=== PATIENT | female | born 1940 | race Caucasian/White ===

== ENCOUNTER 2023-09-20 17:50 | Emergency (ER) | payer BC, SELFPAY ==
[2023-09-20 18:52] VITALS: BP 164/79; PULSE 108; RESP 18; TEMP 36.8; O2SAT 97; BMI 26.9
[2023-09-20 19:54] LABS: PCR FLU A Negative PCR FLU A (Negative); PCR FLU B Negative PCR FLU B (Negative); PCR RSV Negative PCR RSV (Negative)
[2023-09-20 20:07] LABS: SARS PCR* Negative SARS-CoV-2 (Negative)
[2023-09-20 21:30] VITALS: BP 165/83; PULSE 89; RESP 18; O2SAT 96
--- NOTE | 2023-09-20 21:43 | ED_ITS ---
HPI - General Adult General Chief complaint: Hypertension Stated complaint: High BP, nausea Time Seen by Provider: 09/20/23 21:43 History of Present Illness HPI narrative: patient is feeling sick and started this am unable to eat or drink , feeling clammy, nausea, a little blood in stool that was red in stool today has had before but has been a while. running a little high BP, has tightness in the abdomen as if the pants are too tight. feeling weird' feels as if unable to talk, exhausted unable to sleep 83-year-old woman presenting to the emergency department feeling generally unwell. Feels like she is having trouble eating or drinking. Is nauseated. Not with abdominal pain but feels as if is full. Exhausted. Admittedly poor sleep. No fever. No particular exposures. Did note some small bright red blood in stool today. This is not new. Sounds to have been rectal passage. Has been having regular bowel movements. Just feels awful she does not think she will make it to her iron infusion tomorrow. Revealed later discussing along with that has been struggling with grief over the last week particularly due to the of a very close mend worker dog. It is been ?really rough? says. She is not describing suicidal ideation. Has been apparently coping over the last week by drinking eliazar but she endorses from last night as well. Related Data Home Medications Medication Instructions Recorded Confirmed alendronate 70 mg tablet 70 mg PO 09/20/23 amlodipine 10 mg tablet 10 mg PO DAILY 09/20/23 09/20/23 metoprolol succinate 25 mg 25 mg PO DAILY 09/20/23 09/20/23 tablet,extended release 24 hr omeprazole 20 mg capsule,delayed 20 mg PO DAILY 09/20/23 09/20/23 release rosuvastatin 20 mg tablet 20 mg PO QPM 09/20/23 09/20/23 trazodone 100 mg tablet 100 mg PO QPM 09/20/23 09/20/23 Allergies Allergy/AdvReac Type Severity Reaction Status Date / Time No Known Drug Allergies Allergy Verified 09/20/23 19:03 Review of Systems Status of ROS: Reports: 6 or more systems reviewed and unremarkable except as noted in History and below PFSH PFS Social History Smoking Status: Unknown if ever smoked Exam Narrative: Exam Narrative: Very pleasant. Calm. Looks quite fatigued and if she just does not feel very good. Easily responsive in conversation. Occasional belching. Skin is warm and dry without evidence of trauma. Minimal for lower extremity edema. Nonpitting. Well-perfused peripherally. Moving all extremities without difficulty. Oropharynx is sticky without erythema. Neck is supple without lymphadenopathy. Lungs are clear. Heart is in elevated to tachycardic rate in a regular rhythm. Abdomen is full soft and nontender. Normal bowel sounds. Cranial nerves 2-12 are intact with pupils 3 mm and equal and accommodating. Const: Vital Signs, click to edit/add: Vital Signs - 24 hr 09/20/23 18:52 Temperature 98.3 F Pulse Rate [Right Pulse Oximeter] 108 H Respiratory Rate 18 Blood Pressure [Ri ght Upper Arm] 164/79 H Pulse Oximetry 97 Oxygen Delivery Me thod Room Air Documenting provider has reviewed patient's vital signs: yes Course Vital Signs Vital signs: Initial Vital Signs Temperature 98.3 F 09/20/23 18:52 Temperature Source Temporal Artery Scan 09/20/23 18:52 Pulse Rate 108 H 09/20/23 18:52 Respiratory Rate 18 09/20/23 18:52 Blood Pressure 164/79 H 09/20/23 18:52 Blood Pressure Mean 107 H 09/20/23 18:52 Blood Pressure Position Sitting 09/20/23 18:52 Pulse Oximetry 97 09/20/23 18:52 Oxygen Delivery Method Room Air 09/20/23 18:52 Vital Signs Temperature 98.3 F 09/20/23 18:52 Pulse Rate 108 H 09/20/23 18:52 Respiratory Rate 18 09/20/23 18:52 Blood Pressure 164/79 H 09/20/23 18:52 Pulse Oximetry 97 09/20/23 18:52 Oxygen Delivery Method Room Air 09/20/23 18:52 Temperature 98.3 F 09/20/23 18:52 Pulse Rate 88 09/21/23 00:05 Respiratory Rate 18 09/21/23 00:05 Blood Pressure 151/80 H 09/21/23 00:05 Pulse Oximetry 96 09/21/23 00:05 Oxygen Delivery Method Room Air 09/21/23 00:05 Medications Administered Medications: Discontinued Medications Generic Name Dose Route Start Last Admin Trade Name Freq PRN Reason Stop Dose Admin Sodium Chloride 1,000 mls @ 1,000 mls/hr 09/20/23 21:53 09/20/23 23:35 0.9 % Sodium Chloride 1000 Ml IV 09/20/23 22:52 Infused .Q1H ONE Infusion Ondansetron HCl 4 mg 09/20/23 21:53 09/20/23 22:31 Ondansetron 2 Mg/Ml Inj IVP 09/20/23 21:54 4 mg ONCE ONE Administration Medical Decision Making MDM Narrative Medical decision making narrative: Initially would have suspected nonspecific viral illness or process. Would triple screen. Treat for symptoms. Look for red flags in labs. Look for arrhythmia. Differential could include otherwise hepatitis, gastroenteritis not fully realized, abdominal mass, anemia, electrolyte abnormalities, dehydration. IV hydration. Antiemetics. White count minimally elevated. Hemoglobin surprisingly high perhaps, given her reports, at 16 Triple swab negative. Urinalysis with ketones small blood but no evidence of infection Transaminases with slightly elevated AST not inconsistent with recent alcohol consumption. Abdominal x-ray by my read with moderate amount of colonic stool. She feels so much better with IV hydration and Zofran. I think all consistent with combination of grief, excessive alcohol consumption poor water intake and decreased nutrition probably otherwise, poor sleep. See patient discharge plan Lab Data Lab results reviewed: Yes I reviewed the patient's lab results Labs: Lab Results 09/20/23 09/20/23 Range/Units 19:05 22:30 WBC 12.70 H (4.50-11.00) K/uL RBC 4.67 (4.00-5.20) m/uL Hgb 14.0 (12.0-16.0) gm/dL Hct 42.8 (33.0-51.0) % MCV 92 (80-100) fL MCH 30 (26-34) pg MCHC 33 (32-36) gm/dL RDW Coeff of Trung 13.8 (11.5-15.5) % Plt Count 310 (140-440) K/uL Neut % (Auto) 76.9 H (42.0-72.0) % Lymph % (Auto) 14.3 L (20-44) % [place] % (Auto) 7.7 (0.0-11.0) % Eos % (Auto) 0.2 (0.0-7.0) % Baso % (Auto) 0.4 (0.0-3.0) % Neut # (Auto) 9.80 H (1.7-7.0) K/uL Lymph # (Auto) 1.80 (0.90-2.90) K/uL [place] # (Auto) 1.00 H (0.00-0.90) K/UL Eos # (Auto) 0.00 (0.00-0.50) K/uL Baso # (Auto) 0.10 (0.00-0.30) K/uL Abs Immat Gran (auto) 0.10 (0.00-0.30) K/uL Imm/Tot Granulo (auto) 0.5 % Sodium 138 (135-149) mmol/L Potassium 3.9 (3.6-5.1) mmol/L Chloride 101 (96-114) mmol/L Carbon Dioxide 28 (20-32) mmol/L Anion Gap 9 (7-15) mEq/L BUN 17 (7-30) mg/dL Creatinine 0.7 (0.5-1.5) mg/dL Estimated Creat Clear 38.10 Estimated GFR 87 ml/min Glucose 123 H (60-115) mg/dL Calcium 9.8 (8.4-10.6) mg/dL Magnesium 2.0 (1.5-2.6) mg/dL Total Bilirubin 0.6 (0.1-1.5) mg/dL Direct Bilirubin 0.0 (0.0-0.5) mg/dL AST 47 H (12-35) U/L ALT 28 (4-35) U/L Alkaline Phosphatase 81 (40-150) U/L Troponin I 0.02 (0.01-0.04) ng/mL C-Reactive Protein 0.7 (0.5-1.0) mg/dL Total Protein 9.1 H (6.0-8.3) g/dL Albumin 5.4 H (3.3-5.0) g/dL Urine Color Yellow (Yellow) Urine Appearance Clear (Clear) Urine pH 6.5 (5.0-8.5) Ur Specific [place] 1.025 (1.000-1.030) Urine Protein 2+ A (Negative) Urine Glucose (UA) Negative (Negative) Urine Ketones 1+ A (Negative) Urine Blood 1+ A (Negative) Urine Nitrite Negative (Negative) Urine Bilirubin Negative (Negative) Urine Urobilinogen 0.2 (0.2-1.0) Ur Leukocyte Esterase Negative (Negative) Urine RBC 0-2 (0-2) Urine WBC 0-2 (0-5) Ur Squamous Epith Cells Few (None-Few) Urine Bacteria Few A (None) Ethyl Alcohol < 0.01 L (0.01-0.03) % SARS-CoV-2 (PCR) Negative SARS-CoV-2 (Negative) Influenza Type A (PCR) Negative PCR FLU A (Negative) Influenza Type B (PCR) Negative PCR FLU B (Negative) RSV (PCR) Negative PCR RSV (Negative) ECG Data Attestation: I personally reviewed and interpreted this ECG as follows: (EKG with left bundle-branch block rate of 102. ) Prior ECG tracings: not available for review (I do not have prior for comparison. Unclear if this has been present before. 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 No sequelae otherwise apparent) Discharge Plan Discharge Clinical Impression: Malaise, Constipation, Left bundle branch block, Dehydration Patient Disposition: Home w/ Parent or Adult Condition: Improved Additional Instructions: Very sorry about your pup Focus on hydration... With water or maybe diluted juices. Consider slow advance of diet over the next 24 hours. Soup broth, rice, toast, crackers. You do however seem somewhat constipated. Consider adding MiraLax equivalent into your liquid intake 2-3 times daily. Fruits. If particularly hard stool, place an enema and repeat in an hour if no good result. Return for increasing and localizing and persistent abdominal pain, repeated vomiting, increasing pain particularly accompanied by fever, chest pain, shortness of breath. Rico from [facility]. Will call you about this left bundle-branch block. This might require follow- up. We are looking for an old EKG. Prescriptions: No Action alendronate 70 mg tablet 70 mg PO trazodone 100 mg tablet 100 mg PO QPM amlodipine 10 mg tablet 10 mg PO DAILY omeprazole 20 mg capsule,delayed release(DR/EC) 20 mg PO DAILY metoprolol succinate 25 mg tablet extended release 24 hr 25 mg PO DAILY rosuvastatin 20 mg tablet 20 mg PO QPM Follow Up/Referrals: Jina Powell DO [Primary Care Provider] - Stand Alone Forms: [employer] Info Instructions
--- NOTE | 2023-09-20 21:57 | CRLHL7_ITS ---
For Patients: As a result of the Century Cures Act, medical imaging exams and procedure reports are released immediately into your electronic medical record. You may view this report before your referring provider. If you have questions, please contact your health care provider. Indication: Abdominal fullness. Technique: Abdomen 2 views. Permanently recorded images are archived. Comparison: None. Findings: Bowel: Nonobstructive bowel gas pattern. Moderate colonic stool burden. Other: No free air. The lung bases are clear. Aortic valve replacement. Mild dextroconvex scoliotic curvature of the spine. The osseous structures are otherwise unremarkable for age. Impression: No evidence of an acute intra-abdominal process. Moderate colonic stool burden. Dictated by Catracho Tohmas MD @ 09/20/2023 11:24:14 PM (Electronically Signed)
[2023-09-20] MEDS: 0.9 % SODIUM CHLORIDE 1000 ml 1,000 ML IV (22:31)
[2023-09-20] MEDS: ONDANSETRON 2 MG/ML inj 4 MG IVP (22:31)
[2023-09-20 22:46] LABS: Appearance Urine Clear (Clear); Bilirubin Urine Negative (Negative); Blood Urine 1+ (Negative); Color Urine Yellow (Yellow); Glucose Urine Negative (Negative); Ketones Urine 1+ (Negative); Leukocyte Esterase Urine Negative (Negative); Nitrite Urine Negative (Negative); Protein Urine 2+ (Negative); Specific Gravity Urine 1.025 (1.000-1.030); Urobilinogen Urine 0.2 (0.2-1.0); pH Urine 6.5 (5.0-8.5)
[2023-09-20 22:55] LABS: Bacteria Urine Few; RBC Urine 0-2 (0-2); Squamous Epithelial Cell Urine Few (None-Few); WBC Urine 0-2 (0-5)
[2023-09-20 23:00] VITALS: BP 167/83; PULSE 89; RESP 18; O2SAT 91
[2023-09-20 23:01] LABS: Basophils Percent Auto 0.4 % (0.0-3.0); Eosinophils Percent Auto 0.2 % (0.0-7.0); Hematocrit 42.8 % (33.0-51.0); Immature Granulocytes Pct Auto 0.5 %; Lymphocytes Percent Auto 14.3 % (20-44); Mean Corpuscular HGB Conc 33 gm/dL (32-36); Mean Corpuscular Hemoglobin 30 pg (26-34); Mean Corpuscular Volume 92 fL (80-100); Monocytes Percent Auto 7.7 % (0.0-11.0); Neutrophils Percent Auto 76.9 % (42.0-72.0); Platelet Count* 310 K/uL (140-440); RDW Coefficient of Variation % 13.8 % (11.5-15.5); Red Blood Count 4.67 m/uL (4.00-5.20)
[2023-09-20 23:03] LABS: Chloride* 101 mmol/L (96-114); Potassium* 3.9 mmol/L (3.6-5.1); Sodium* 138 mmol/L (135-149)
[2023-09-20 23:04] LABS: Albumin* 5.4 g/dL (3.3-5.0)
[2023-09-20 23:06] LABS: Anion Gap 9 mEq/L (7-15); Blood Urea Nitrogen* 17 mg/dL (7-30); Carbon Dioxide* 28 mmol/L (20-32); Creatinine* 0.7 mg/dL (0.5-1.5); Estimated Glomerular Filt Rate 87 ml/min
[2023-09-20 23:07] LABS: Alanine Aminotransferase* 28 U/L (4-35); Alkaline Phosphatase* 81 U/L (40-150); Aspartate Amino Transferase* 47 U/L (12-35); Bilirubin Total* 0.6 mg/dL (0.1-1.5); Calcium* 9.8 mg/dL (8.4-10.6); Glucose* 123 mg/dL (60-115); Total Protein* 9.1 g/dL (6.0-8.3)
[2023-09-20 23:08] LABS: Slide Review Reflex No
[2023-09-20 23:10] LABS: C Reactive Protein* 0.7 mg/dL (0.5-1.0)
[2023-09-20 23:14] LABS: Ethanol* < 0.01 % (0.01-0.03)
[2023-09-20 23:18] LABS: Troponin I* 0.02 ng/mL (0.01-0.04)
[2023-09-21 00:05] VITALS: BP 151/80; PULSE 88; RESP 18; O2SAT 96
== END 2023-09-21 00:12 | disposition home or self-care (01) ==
PROVIDERS: Emergency Provider Family Medicine; PCP Family Medicine
DX: R53.81 Other malaise (principal); I44.7 Left bundle-branch block, unspecified; K59.00 Constipation, unspecified
CPT/HCPCS: 36415; 74018; 80048; 80076; 81001; 82077; 83735; 84484; 85025; 86140; 87086; 87186; 87631; 93005; 96374; 99284; J2405; J7030